=== PATIENT | male | born 1955 | race Caucasian/White ===

== ENCOUNTER 2024-06-23 13:29 | Emergency (ER) | payer OTHER ==
[~2024-06-23] VITALS: Ht 188 cm; Wt 88.5 kg
[2024-06-23 17:05] VITALS: BP 127/83; TEMP 98.4; O2SAT 97
== END 2024-06-23 17:05 | disposition home or self-care (01) ==
LOC: ER 13:29
DX: S01.511A Laceration without foreign body of lip, initial encounter (principal); E78.5 Hyperlipidemia, unspecified; I10 Essential (primary) hypertension; W50.0XXA Accidental hit or strike by another person, initial encounter; Y93.89 Activity, other specified; Y92.89 Other specified places as the place of occurrence of the external cause; Y99.8 Other external cause status
CPT/HCPCS: 12011; 99282; A6403